=== PATIENT | female | born 1935 | race Hispanic/Latino ===

== ENCOUNTER 2017-03-28 21:59 | Emergency (ER) | payer MEDICARE ==
[~2017-03-28 21:59] MED LIST: ADRENALIN ONE; CORDARONE IV ONE; SODIUM BICARBONATE IV ONE
--- NOTE | 2017-03-28 22:21 | Emergency Department Report ---
HPI - General Time Seen by Provider: 03/28/17 22:16 - HPI HPI: Room 19 The patient is an 81-year-old female presenting with a chief complaint cardiac arrest. Per EMS patient was witnessed arrest at home. EMS states they arrived on scene at 21:22 to find the patient with agonal respirations. Patient was intubated and patient was protocols initiated. EMS states the patient was asystolic during transport. Patient has a history of metastatic cancer Location: Cardiovascular system Duration: EMS on scene at 21:22 Quality: Cardiac arrest Severity: Severe Modifying factors: [see above] Context: [see above] Mode of transportation: [not driving] ED Past Medical Hx - Past Medical History Hx Heart Attack/AMI: Yes Hx Congestive Heart Failure: Yes Hx of Cancer: Yes (metastatic) - Family History Family history: no significant - Social History Smoking Status: Unknown if ever smoked ED Review of Systems ROS: Stated complaint: CARDIAC ARREST Other details as noted in HPI Comment: Unobtainable due to pts medical conditions Physical Exam - Physical Exam Physical Exam: GENERAL: The patient is well-developed well-nourished elderly female being bagged via ET tube and receiving chest compressions from EMS. [] HEENT: Normocephalic. Atraumatic. NECK: Trachea midline CHEST/LUNGS: No spontaneous respirations. Breath sounds equal bilaterally with bagging via ET tube HEART/CARDIOVASCULAR: No heart sounds. Asystole on monitor ABDOMEN:There is no abdominal distention. SKIN: There is no diaphoresis. NEURO: GCS 3T MUSCULOSKELETAL: There is no evidence of acute injury. ED Medical Decision Making - Differential Diagnosis cardiac arrest Critical care attestation.: If time is entered above; I have spent that time in minutes in the direct care of this critically ill patient, excluding procedure time. ED Disposition Clinical Impression: Cardiac arrest Disposition: Z-41 HOSPICE- MED FAC Is pt being admited?: No Does the pt Need Aspirin: No Condition: Poor Time of Disposition: 22:17 (patient )
== END 2017-03-29 00:15 ==
LOC: EDBD → ED 21:59
DX: I46.9 Cardiac arrest, cause unspecified (principal); I50.9 Heart failure, unspecified; I25.2 Old myocardial infarction
CPT/HCPCS: 99285; J0171; J0282